=== PATIENT | male | born 1945 | race Caucasian/White ===

== ENCOUNTER 2021-01-18 19:16 | Emergency (ER) | payer MEDICARE, BC ==
[2021-01-18 20:06] LABS: RED BLOOD COUNT 3.58 M/UL (4.20-5.50); WHITE BLOOD COUNT 7.3 K/UL (4.5-11.0)
[2021-01-18 20:19] LABS: BUN/CREATININE RATIO 16 (0-10)
== END 2021-01-18 23:30 | disposition home or self-care (01) ==
LOC: ER1 19:16
PROVIDERS: Preventive Medicine Occupational Medicine
DX: Z48.817 Encounter for surgical aftercare following surgery on the skin and subcutaneous tissue (principal); I48.91 Unspecified atrial fibrillation; I25.10 Atherosclerotic heart disease of native coronary artery without angina pectoris; Z88.8 Allergy status to other drugs, medicaments and biological substances
CPT/HCPCS: 72193; 80048; 85025; 86850; 86900; 86901; 96365; 96366; 99284; J3370; J7050; Q9967

== ENCOUNTER 2021-01-19 16:12 | Emergency (ER) | payer MEDICARE, BC | END 2021-01-19 18:24 | disposition home or self-care (01) | LOC: ER1 16:12 | DX: T81.89XA Other complications of procedures, not elsewhere classified, initial encounter (principal); S31.30XA Unspecified open wound of scrotum and testes, initial encounter; I10 Essential (primary) hypertension; I48.91 Unspecified atrial fibrillation; Z88.1 Allergy status to other antibiotic agents | CPT/HCPCS: 99283 ==